=== PATIENT | male | born 1950 | race Caucasian/White ===

== ENCOUNTER 2017-08-06 15:50 | Inpatient (IN) | payer MEDICARE, OTHER ==
[~2017-08-06] VITALS: Ht 177.8 cm; Wt 79.8 kg
[~2017-08-06 15:50] MED LIST: ASPIRIN325 PO; HYDROCODONE-AP1 EAC6 PO; HYDROXYZINE HCL25 M1 PO; LOSARTAN/HCTZ PO; OXYCODONE HCL 55 MG PO; XARELTO10 MG PO
[2017-08-06 15:54] VITALS: BP 135/85
[2017-08-06 16:10] LABS: ABSOLUTE BASOPHILS 0.1 thou/uL (0.0-0.2); ABSOLUTE EOSINOPHILS 0.2 thou/uL (0.0-0.7); ABSOLUTE LYMPHOCYTES 2.2 thou/uL (0.8-5.3); ABSOLUTE MONOCYTES 0.8 thou/uL (0.0-1.2); ABSOLUTE NEUTROPHILS 4.5 thou/uL (1.6-8.1); BASOPHILS 1.2 %; EOSINOPHILS 3.1 %; HEMATOCRIT 46.1 % (42.0-52.0); HEMOGLOBIN 15.4 gm/dL (14.0-18.0); LYMPHOCYTES 27.8 %; MCH 29.2 pg (26.0-34.0); MCHC 33.5 g/dL (28.0-37.0); MCV 87.3 fL (80.0-100.0); MONOCYTES 10.7 %; MPV 7.5 fl. (7.2-11.1); NUCLEATED RBCS 0 /100WBC; PLATELET COUNT* 276 thou/uL (150-400); POLYS 57.2 %; RBC 5.28 mil/uL (4.50-6.00); WBC 7.9 thou/uL (4.0-11.0)
[2017-08-06 16:16] LABS: ANION GAP 4 mmol/L (7-16); BUN 23 mg/dL (7-18); CALCIUM 9.1 mg/dL (8.5-10.1); CHLORIDE 100 mmol/L (98-107); CO2 28 mmol/L (21-32); CREATININE 1.4 mg/dL (0.6-1.3); GLUCOSE 96 mg/dL (70-99); POTASSIUM 3.3 mmol/L (3.5-5.1); SODIUM 132 mmol/L (136-145)
[2017-08-06 16:21] LABS: APTT 28.9 Seconds (25.0-31.3); PROTIME 9.9 Seconds (9.20-11.50)
[2017-08-06 16:23] LABS: ALBUMIN 3.7 g/dL (3.4-5.0); ALKALINE PHOSPHATASE 107 U/L (46-116); LIPASE 361 U/L (73-393); SGOT 18 U/L (15-37); SGPT 21 U/L (30-65); TOTAL BILIRUBIN 0.5 mg/dL (<0.1-1.0); TOTAL PROTEIN 7.5 g/dL (6.4-8.2); TROPONIN-I LEVEL <0.06 ng/mL (<0.06)
[2017-08-06 20:30] VITALS: BP 156/84
[2017-08-06 20:35] VITALS: BP 132/82
[2017-08-07] VITALS: BP 123/76
[2017-08-07 04:33] VITALS: BP 97/63
[2017-08-07 06:01] LABS: HEMATOCRIT 41.7 % (42.0-52.0); MCH 29.2 pg (26.0-34.0); MCHC 33.6 g/dL (28.0-37.0); MCV 86.9 fL (80.0-100.0); MPV 7.5 fl. (7.2-11.1); RBC 4.8 mil/uL (4.50-6.00); WBC 7.9 thou/uL (4.0-11.0)
[2017-08-07 06:09] LABS: CALCIUM 8.3 mg/dL (8.5-10.1); CREATININE 1.5 mg/dL (0.6-1.3)
[2017-08-07 06:11] LABS: POTASSIUM 4.3 mmol/L (3.5-5.1)
[2017-08-07 08:00] VITALS: BP 115/71
[2017-08-07 09:33] LABS: CHOLESTEROL 143 mg/dL (<200); HDL CHOLESTEROL 30 mg/dL (>40); LDL CHOLESTEROL 86 mg/dL (<100); SERUM ASSESSMENT Clear; TC:HDL 4.8 Ratio (Not establshd); TRIGLYCERIDE 137 mg/dL (<150); VLDL 27 mg/dL (<40)
--- NOTE | 2017-08-07 10:02 | EKG ---
[place] [address] ELECTROCARDIOGRAM REPORT Name: DEYANIRA HOGAN Room: [address] IN [facility]#: [id number] Admission: 08/06/17 Attend Phys: Stacy Lilly MD Discharge: Date of : 46 Report #: [id number] THIS REPORT FOR: //name// [facility] ED Test Date: 2017-08-06 Test Time: 15:53:06 Pat Name: DEYANIRA HOGAN Department: Room: Gender: [employer] 1 [employer] 5 Teacher: : 1950 Requested By: Natalia Bay Order Number: [id number] MD: Sky Mcmullen Measurements Intervals Humphrey Rate: 68 P: 49 RI: 160 QRS: -36 QRSD: 102 T: 25 QT: 399 QTc: 425 Interpretive Statements Sinus rhythm Probable left atrial enlargement Left axis deviation possible previous inferior infarction Borderline low voltage, extremity leads Compared to ECG 04/13/2016 11:33:10 no change Electronically Signed On 08-07-2017 10:01:58 CDT by Sky Mcmullen [email or web address] <ELECTRONICALLY SIGNED> By: Sky Mcmullen MD, [facility] 08/07/17 1001 1553 1553 Sky Mcmullen MD, [facility] /EPI
--- NOTE | 2017-08-07 11:47 | CARDNUC ---
[place] [address] CARDIAC NUCLEAR IMAGING REPORT Name: DEYANIRA HOGAN Room: [address] IN [facility]#: [id number] Admission: 08/06/17 Attend Phys: Stacy Lilly, Discharge: Date of : 46 Date of Service: 08/07/17 1147 Report #: [id number] THIS REPORT FOR: //name// APPROVED REPORT Study performed: 08/07/2017 08:41:00 Exam: Nuclear Stress Test Indication: Chest pain, Dyspnea, Palpitations Patient Location: In-Patient Room #: 220 Stress Tech: Faviola Kilgore Stress Nurse: Nya Juarez RN NM Tech:CRISTOBAL Soria Ht: 5 ft 10 in Wt: 176 lbs BSA: 1.98 m2 BMI: 25.25 Medical History Medical History: HTN, Smoking Medications: losartan, hctz Allergies: No known drug allergies Cardiac Risk Factors: Age, Current Smoker, HTN Exercise History: Physically active Physical Disabilities: Knees Stress Test Details Stress Test: Pharmacologic stress was paired with low level exercise. Reason for pharmacologic stress test: physical limitation. HR Resting HR: 60 bpm Max Heart Rate (APMHR): 151 bpm Max HR Achieved: 114 bpm Target HR (85% APMHR): 128 bpm % of APMHR: 75 Recovery HR: 75 bpm BP Resting BP: 141/81 mmHg Max BP: 168/87 mmHg ECG Resting ECG: Sinus Rhythm, normal EKG Stress ECG: Sinus Rhythm, normal EKG ST Change: [place] [address] CARDIAC NUCLEAR IMAGING REPORT Name: DEYANIRA HOGAN Room: [address]#: [id number] Admission: 08/06/17 Attend Phys: Stacy Lilly, Discharge: Date of : 46 Date of Service: 08/07/17 1147 Report #: [id number] Arrhythmia: None Recovery ECG: Sinus Rhythm, normal EKG Recovery ST Change: None Recovery Arrhythmia: None Clinical Reason for Termination: Completed protocol Stress Symptoms: Dyspnea Exercise duration: 4 min 0 sec Exercise capacity: 2.3 METs The patient had mild dyspnea with Lexiscan but no chest pain. Nurse Comments Patient complained of SOB post lexiscan, resolved in recovery. Stress ECG Conclusion The baseline 12-lead electrocardiogram showed sinus rhythm with no significant ST or T wave abnormalities. EKGs obtained during and post Lexiscan infusion showed sinus rhythm with changes when compared to baseline. There were no stress-induced arrhythmias. NM EXAM: Myocardial Perfusion REST/STRESS Imaging Protocol: Rest Tc-99m/Stress Tc-99m 1 day Resting Data Rest SPECT myocardial perfusion imaging was performed in supine position 30 minutes following the intravenous injection of 12.0 mCi of Tc-99m Sestamibi. Time of rest injection: 0910 Date: 08/07/2017 Time of rest imagin The images were gated to evaluate regional wall motion and calculate left ventricular ejection fraction. Administration Route: IV Pharmacologic Stress Pharmacologic stress test was performed by injecting Regadenoson 0.4 mg IV push followed by the intravenous injection of 36.0 mCi of Tc-99m Sestamibi. Time of stress injection: 1030 Time of stress imagin Administration Route: IV Gated Stress SPECT was performed 40 minutes after stress injection. The images were gated to evaluate regional wall motion and calculate left [place] [address] CARDIAC NUCLEAR IMAGING REPORT Name: DEYANIRA HOGAN Room: [address]#: [id number] Admission: 08/06/17 Attend Phys: Stacy Lilly, Discharge: Date of : 46 Date of Service: 08/07/17 1147 Report #: [id number] Prone imaging was performed. Study Quality Study: Good Artifact: No artifact Study Data At rest, the left ventricular ejection fraction was 83%.. Post stress, the left ventricular ejection was 88%.. TID = 1.01. Perfusion Normal left ventricular perfusion. Wall Motion Normal left ventricular wall motion. Nuclear Conclusion ECG Findings: negative for ischemia Clinical Findings: negative for ischemia Nuclear Findings: negative for ischemia Exercise Capacity: not assessed Left Ventricular Function: normal Risk Study: low Myocardial perfusion images show no defect to suggest infarct or ischemia. On gated studies left ventricular systolic function is normal. This is a low risk study. <Conclusion> The baseline 12-lead electrocardiogram showed sinus rhythm with no significant ST or T wave abnormalities. EKGs obtained during and post Lexiscan infusion showed sinus rhythm with changes when compared to baseline. There were no stress-induced arrhythmias. <ELECTRONICALLY SIGNED> By: Vishal Mcadams MD, FACC 08/07/17 1147 1147 1147 Vishal Mcadams MD, FACC /INF
[2017-08-07 13:17] VITALS: BP 115/71
[2017-08-07 13:30] VITALS: BP 107/69
[2017-08-07] MEDS ORDERED: CEPASTAT CHERR18 TA2 PO (14:42)
[2017-08-07] MEDS ORDERED: PREDNISONE 10 M10 MG PO (14:42)
[2017-08-07] MEDS ORDERED: SINGULAIR 10 MG10 M1 PO (14:43)
[2017-08-07 14:44] VITALS: BP 115/71
--- NOTE | 2017-08-07 17:00 | 2DMMODE ---
[place] [address] 2 D/M-MODE ECHOCARDIOGRAM Name: DEYANIRA HOGAN Room: [address]#: [id number] Admission: 08/06/17 Attend Phys: Stacy Lilly, Discharge: 08/07/17 Date of : 46 Date of Service: 08/07/17 1700 Report #: [id number] THIS REPORT FOR: //name// APPROVED REPORT Study performed: 08/07/2017 11:33:58 EXAM: Comprehensive 2D, Doppler, and color-flow Echocardiogram Patient Location: In-Patient Room #: 220 Status: routine BSA: 1.98 HR: 62 bpm BP: 97/63 mmHg Rhythm: NSR Other Information Study Quality: Good Indications Mitral Valve Prolapse Dyspnea Chest Pain 2D Dimensions LVEF(%): 77.61 (>50%) IVSd: 9.18 (7-11mm) LVOT Diam: 22.47 (18-24mm) LVDd: 50.07 mm PWd: 6.93 (7-11mm) Ascending Ao: 36.16 (22-36mm) LVDs: 26.82 (25-40mm) Aortic Root: 31.09 mm Hunt's LVEF: 77.61 % Volumes Left Atrial Volume (Systole) LA ESV Index: 23.30 mL/m2 Aortic Valve AoV Peak Franklyn.: 1.91 m/s AO Peak Gr.: 14.54 mmHg LVOT Max P.47 mmHg AO Mean Gr.: 6.94 mmHg LVOT Mean P.40 mmHg LVOT Max V: 1.90 m/s AO V2 VTI: 34.19 cm LVOT Mean V: 1.15 m/s JASON (VTI): 3.60 cm2 LVOT V1 VTI: 31.05 [place] [address] 2 D/M-MODE ECHOCARDIOGRAM Name: DEYANIRA HOGAN Room: [address]#: [id number] Admission: 08/06/17 Attend Phys: Stacy Lilly, Discharge: 08/07/17 Date of : 46 Date of Service: 08/07/17 1700 Report #: [id number] Mitral Valve E/A Ratio: 1.28 MV Decel. Time: 216.94 ms MV E Max Franklyn.: 0.94 m/s MV PHT: 62.91 ms MVA (PHT): 3.50 cm2 TDI E/Lateral E': 7.83 E/Medial E': 7.83 Medial E' Franklyn.: 0.12 m/s Lateral E' Franklyn.: 0.12 m/s Pulmonary Valve PV Peak Franklyn.: 1.08 m/s PV Peak Gr.: 4.65 mmHg Tricuspid Valve TR Peak Gr.: 23.35 mmHg RVSP: 28.00 mmHg Left Ventricle The left ventricle is normal size. There is normal LV segmental wall motion. There is normal left ventricular wall thickness. Left ventricular systolic function is normal. LVEF is 55-60%. The left ventricular diastolic function is normal. Right Ventricle The right ventricle is normal size. The right ventricular systolic function is normal. Atria The left atrium size is normal. The right atrium size is normal. Aortic Valve Mild aortic valve sclerosis. No aortic regurgitation is present. There is no aortic valvular stenosis. Mitral Valve The mitral valve is normal in structure. Mild mitral regurgitation. No evidence of mitral valve stenosis. There is mitral valve prolapse. Tricuspid Valve The tricuspid valve is normal in structure. Mild tricuspid regurgitation. The RVSP is ___28____ mmHg[place] [address] 2 D/M-MODE ECHOCARDIOGRAM Name: DEYANIRA HOGAN Room: [address]#: [id number] Admission: 08/06/17 Attend Phys: Stacy Lilly, Discharge: 08/07/17 Date of : 46 Date of Service: 08/07/17 1700 Report #: [id number] The pulmonary valve is normal in structure. Trace pulmonic regurgitation. Great Vessels The aortic root is normal in size. IVC is normal in size and collapses with >50% inspiration Pericardium There is no pericardial effusion. <Conclusion> The left ventricle is normal size. There is normal left ventricular wall thickness. Left ventricular systolic function is normal. LVEF is 55-60%. The left ventricular diastolic function is normal. Mild aortic valve sclerosis. The mitral valve is normal in structure. Mild mitral regurgitation. There is mitral valve prolapse. Mild tricuspid regurgitation. The RVSP is ___28____ mmHg. IVC is normal in size and collapses with >50% inspiration <ELECTRONICALLY SIGNED> By: Vishal Mcadams MD, FACC 08/07/171699 99 99 Vishal Mcadams MD, FACC /INF
--- NOTE | 2017-08-09 08:09 | CON ---
[address] [address] CONSULTATION Name: DEYANIRA HOGAN Room: [address] IN .R.#: [id number] Admission: 08/06/17 Attend Phys: Stacy Lilly MD Discharge: 08/07/17 Date of : 46 Report #: [id number] THIS REPORT FOR: //name// CC: Stacy Garcia DATE OF SERVICE: 08/07/2017 INDICATION: Abnormal EKG and chest discomfort. HISTORY OF PRESENT ILLNESS: The patient is a very pleasant 67-year-old gentleman with no prior cardiac history. He was seen by his primary care physician noting chest pressure off and on for the past 2 weeks. An EKG apparently showed some subtle abnormalities. The patient was brought to the emergency room through which he was admitted for further evaluation. The patient reports feeling rundown for the past couple of weeks. With this, he has intermittent sensation of weight on his chest, not necessarily associated with exertion. He does have some shortness of breath with it, but no diaphoresis or nausea. The pain/discomfort last 1-2 minutes at a time. He also has had palpitations for many years. He has a history of mitral valve prolapse. At the time of my interview, he was comfortable. His pressure sensation had eased up. He is without other cardiac complaint at this time. PAST MEDICAL HISTORY: 1. Mitral valve prolapse. 2. Hypertension. 3. Tobacco use remotely. PAST SURGICAL HISTORY: Left knee replacement. FAMILY HISTORY: Noncontributory. 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 He is . He uses an e-cigarette presently. He quit smoking traditional cigarette some time ago. ALLERGIES: No known drug allergies. CURRENT MEDICATIONS: Hydroxyzine p.r.n. and losartan/hydrochlorothiazide daily. REVIEW OF SYSTEMS: A 14-point review of systems is positive for chest pressure, dyspnea on exertion, seasonal allergies, occasional hives and he wears glasses without acute visual loss. Otherwise, 14-point review of [place] [address] CONSULTATION Name: DEYANIRA HOGAN Room: [address]#: [id number] Admission: 08/06/17 Attend Phys: Stacy Lilly MD Discharge: 08/07/17 Date of : 46 Report #: [id number] PHYSICAL EXAMINATION: VITAL SIGNS: Stable. Blood pressure is 115/71, pulse 57 and regular. GENERAL: This is a pleasant gentleman, in no distress. Mood and affect appropriate. HEENT: The patient is wearing glasses. Extraocular muscles intact. Mucous membranes moist. NECK: Shows no jugular venous distention. There are no carotid bruits. CHEST: Chest reveals clear lung lomax without wheezes, rales, or rhonchi. CARDIOVASCULAR: Reveals a regular rhythm with normal S1 and S2. I do not appreciate gallop or murmur. ABDOMEN: Reveals normal bowel sounds. The abdomen is soft and nontender. EXTREMITIES: Shows no edema. Peripheral pulses are 2+ and easily palpable. SKIN: Warm and dry. LABS: Reviewed. Electrolytes are within normal limits. BUN was 24, creatinine was 1.5. Baseline creatinine 1.3. Troponins were less than 0.06 on 2 separate occasions. Fasting lipid profile shows a total cholesterol 143, triglycerides 137, HDL 30, LDL 86. CBC was within normal limits. CTA chest showed no evidence of dissection or embolism. Nuclear stress test showed normal left ventricular systolic function and no evidence of infarct or ischemia. Echocardiogram shows mitral valve prolapse with trace to mild mitral insufficiency. LV systolic function normal. Chest x-ray showed no acute process. IMPRESSION AND RECOMMENDATIONS: 1. Chest discomfort, not likely cardiac in origin. I suspect he may have a little gastroesophageal reflux. Could consider p.r.n. proton pump use. 2. Tobacco use history. Cessation discussed and advised. The patient is using an e-cigarette intermittently presently. 3. Palpitations due to underlying premature ventricular contractions. These are benign in nature. No specific treatment. 4. Abnormal EKG, relatively stable at this time. I do not appreciate evidence of ST elevation myocardial infarction. We will follow clinically. 5. Mitral valve prolapse, stable. Recommend yearly echocardiographic followup. 6. From a cardiac standpoint, the patient appears stable. We will follow in 2 months as an outpatient. <ELECTRONICALLY SIGNED> By: Sky Mcmullen MD, FACC 08/09/17 0809 1323 [id number] Mcadams MD, FACC /nt
== END 2017-08-07 15:00 | disposition home or self-care (01) | DRG 203 ==
LOC: M.ERS 15:50 → M.2W 18:45 → M.TBA-ER 18:45 → M.2W 20:22
PROVIDERS: Internal Medicine; Personal Emergency Response Attendant; ADMIT Internal Medicine
DX: J45.901 Unspecified asthma with (acute) exacerbation (principal); Z96.652 Presence of left artificial knee joint; I12.9 Hypertensive chronic kidney disease with stage 1 through stage 4 chronic kidney disease, or unspecified chronic kidney disease; N18.3 Chronic kidney disease, stage 3 (moderate); F17.290 Nicotine dependence, other tobacco product, uncomplicated; I49.3 Ventricular premature depolarization; I34.1 Nonrheumatic mitral (valve) prolapse; Z79.899 Other long term (current) drug therapy; Z71.6 Tobacco abuse counseling